=== PATIENT | female | born 1950 | race Caucasian/White ===

== ENCOUNTER 2020-06-19 10:56 | Emergency (ER) | payer MEDICARE, BC ==
[2020-06-19] MEDS ORDERED: Sodium Chloride 0.9% 10 ML Syringe FLUSH PRN (11:18)
[2020-06-19] MEDS ORDERED: Ondansetron 4 MG/2 ML SDV IVPUSH ONE (11:18)
[2020-06-19] MEDS ORDERED: Sodium Chloride 0.9% 1,000 ML IV STA (11:18)
--- NOTE | 2020-06-19 11:31 | EDM.PDOC ---
ED HPI GENERAL MEDICAL PROBLEM - General Chief Complaint: Gastrointestinal Problem Stated Complaint: [facility] Time Seen by Provider: 06/19/20 11:00 Source of Information: Reports: Patient, RN Notes Reviewed History Limitations: Reports: No Limitations - History of Present Illness INITIAL COMMENTS - FREE TEXT/NARRATIVE: Patient is a 69-year-old female presenting to the emergency department with complaints of dizziness. She states shortly after waking this morning she went to the bathroom and experienced sensation of the room spinning. She states she also feels like there is "fluid sloshing around in her left ear ". She has a history of vertigo with her last episode being 1 year ago. She states after going on a cruise in June, she did have to go to through physical therapy for a number of months as she continued to have motion sickness. She describes her "dizziness "as feeling rotational. When she closes her eyes she states it continues to feel like the room is spinning. She has not fallen or hit her head recently. Denies headache. She is had no abdominal pain or vomiting but does feel nauseous with this. She states that symptoms seem to worsen with position changes. - Related Data Allergies Allergy/AdvReac Type Severity Reaction Status Date / Time codeine Allergy Other Verified 10/17/17 07:20 Home Meds: Home Meds Meclizine [Antivert] 25 mg PO TID PRN #30 tab 06/19/20 [Rx] Ondansetron [Zofran ODT] 4 mg PO Q6H PRN #10 tab.dis 06/19/20 [Rx] Past Medical History - Infectious Disease History Infectious Disease History: Reports: Chicken Pox, Mumps, Rubella - Past Surgical History Female Surgical History: Reports: D&C, Hysterectomy, Tubal Ligation Social & Family History - Tobacco Use Tobacco Use Status *Q: Never Tobacco User Second Hand Smoke Exposure: No - Caffeine Use Caffeine Use: Reports: Coffee - Recreational Drug Use Recreational Drug Use: No ED ROS GENERAL - Review of Systems Review Of Systems: See Below Constitutional: Reports: No Symptoms. Denies: Fever, Chills, Weakness HEENT: Reports: Vertigo, Other (Left ear "fluid sloshing "). Denies: Ear D ischarge, Ear Pain Respiratory: Reports: No Symptoms Cardiovascular: Reports: No Symptoms. Denies: Chest Pain, Dyspnea on Exertion Endocrine: Reports: No Symptoms GI/Abdominal: Reports: Nausea. Denies: Abdominal Pain, Vomiting : Reports: No Symptoms Musculoskeletal: Reports: No Symptoms Skin: Reports: No Symptoms Neurological: Reports: Dizziness, Gait Disturbance. Denies: Confusion, Headache Psychiatric: Reports: No Symptoms Hematologic/Lymphatic: Reports: No Symptoms Immunologic: Reports: No Symptoms ED EXAM, DIZZINESS - Physical Exam Exam: See Below Exam Limited By: No Limitations General Appearance: Alert, WD/WN, No Apparent Distress Eye Exam: Bilateral Eye: Normal Inspection, PERRL Ears: Normal External Exam, Normal Canal, TM Fluid (left). No: TM Bulging, TM Erythema Vertigo: reproducible (when going from lying to upright position.). No: worsens with head to L, worsens with head to R Respiratory/Chest: No Respiratory Distress, Lungs Clear, Normal Breath Sounds, No Accessory Muscle Use, Chest Non-Tender Cardiovascular: Normal Peripheral Pulses, Regular Rate, Rhythm, No Edema, No Gallop, No JVD, No Murmur, No Rub Neurological: Alert, Normal Mood/Affect, Normal Dorsiflexion, CN II-XII Intact, Normal Plantar Flexion, Normal Gait, Normal Reflexes, No Motor/Sensory Deficits, Oriented x 3 Psychiatric: Normal Affect, Normal Mood Skin Exam: Warm, Dry, Intact, Normal Color, No Rash Course - Vital Signs Last Recorded V/S: Last Vital Signs Temp 97.5 F 06/19/20 11:01 Pulse 72 06/19/20 11:01 Resp 18 06/19/20 11:01 BP 145/74 H 06/19/20 11:01 Pulse Ox 100 06/19/20 11:01 - Orders/Labs/Meds Orders: Active Orders 24 hr Category Date Time Status Peripheral IV Care [RC] . DIRECTED Care 06/19/20 11:18 Active Sodium Chloride 0.9% [Normal Saline] 1,000 ml Med 06/19/20 11:18 Active IV NOW Sodium Chloride 0.9% [Saline Flush] Med 06/19/20 11:18 Active 10 ml FLUSH ASDIRECTED PRN Peripheral IV Insertion Adult [OM.PC] Stat Oth 06/19/20 11:18 Ordered Medication Orders Sodium Chloride (Normal Saline) 1,000 mls @ 150 mls/hr IV NOW STA Stop: 06/19/20 17:57 Last Admin: 06/19/20 11:29 Dose: 150 mls/hr Documented by: VLAD Sodium Chloride (Saline Flush) 10 ml FLUSH ASDIRECTED PRN PRN Reason: Keep Vein Open Last Admin: 06/19/20 11:29 Dose: 10 ml Documented by: VLAD Labs: Laboratory Tests 06/19/20 06/19/20 Range/Units 11:30 11:30 WBC 6.00 (3.98-10.04) K/mm3 RBC 4.41 (3.98-5.22) M/mm3 Hgb 13.5 (11.2-15.7) gm/dl Hct 39.9 (34.1-44.9) % MCV 90.5 (79.4-94.8) fl MCH 30.6 (25.6-32.2) pg MCHC 33.8 (32.2-35.5) g/dl RDW Std Deviation 43.5 (36.4-46.3) fL Plt Count 131 L (182-369) K/mm3 MPV 9.0 L (9.4-12.3) fl Neut % (Auto) 77.6 H (34.0-71.1) % Lymph % (Auto) 14.8 L (19.3-51.7) % Florence % (Auto) 6.0 (4.7-12.5) % Eos % (Auto) 1.2 (0.7-5.8) Baso % (Auto) 0.2 (0.1-1.2) % Neut # (Auto) 4.66 (1.56-6.13) K/mm3 Lymph # (Auto) 0.89 L (1.18-3.74) K/mm3 Florence # (Auto) 0.36 (0.24-0.36) K/mm3 Eos # (Auto) 0.07 (0.04-0.36) K/mm3 Baso # (Auto) 0.01 (0.01-0.08) K/mm3 Sodium 142 (136-145) mEq/L Potassium 3.7 (3.5-5.1) mEq/L Chloride 106 (98-107) mEq/L Carbon Dioxide 26 (21-32) mEq/L Anion Gap 13.7 (5-15) BUN 19 H (7-18) mg/dL Creatinine 0.9 (0.55-1.02) mg/dL Est Cr Clr Drug Dosing 47.97 mL/min Estimated GFR (MDRD) > 60 (>60) mL/min BUN/Creatinine Ratio 21.1 H (14-18) Glucose 129 H (80-115) mg/dL Calcium 9.0 (8.5-10.1) mg/dL Magnesium 1.7 L (1.8-2.4) mg/dl Total Bilirubin 0.4 (0.2-1.0) mg/dL AST 20 (15-37) U/L ALT 20 (14-59) U/L Alkaline Phosphatase 45 L (46-116) U/L C-Reactive Protein 0.4 (<1.0) mg/dL Total Protein 7.2 (6.4-8.2) g/dl Albumin 3.5 (3.4-5.0) g/dl Globulin 3.7 gm/dL Albumin/Globulin Ratio 1.0 (1-2) Meds: Medications Generic Name Dose Route Start Last Admin Trade Name Freq PRN Reason Stop Dose Admin Sodium Chloride 1,000 mls @ 150 mls/hr 06/19/20 11:18 06/19/20 11:29 Normal Saline IV 06/19/20 17:57 150 mls/hr NOW STA Administration Sodium Chloride 10 ml 06/19/20 11:18 06/19/20 11:29 Saline Flush FLUSH 10 ml ASDIRECTED PRN Administration Keep Vein Open Discontinued Medications Generic Name Dose Route Start Last Admin Trade Name Freq PRN Reason Stop Dose Admin Meclizine HCl 25 mg 06/19/20 11:18 06/19/20 11:29 Antivert PO 06/19/20 11:19 25 mg ONETIME ONE Administration Ondansetron HCl 4 mg 06/19/20 11:18 06/19/20 11:29 Zofran IVPUSH 06/19/20 11:19 4 mg ONETIME ONE Administration - Re-Assessments/Exams Free Text/Narrative Re-Assessment/Exam: Patient is a 69-year-old female presenting to the emergency department with complaints of symptoms of vertigo that began this morning. She denies any headache or recent falls. Symptoms do not worsen with lateral turning of the head to the right of the left, however were able to be reproduced by going from a lying to a sitting position. I have ordered CBC, CMP, CRP, magnesium, and CT scan of the head. I will give her meclizine 25 mg p.o. as well as Zofran 4 mg IV. 06/19/20 12:49 Hematology was grossly unremarkable. CT scan showed no acute abnormalities. Patient's dizziness has improved significantly with the Zofran and meclizine. We will discharge her home with a prescription for meclizine and Zofran. Discussed that if her symptoms have not resolved by Monday, she should follow-up in the clinic to discuss return to physical therapy for vertigo symptoms. Return precautions discussed. Discharge instructions as documented. Departure - Departure Time of Disposition: 12:50 Disposition: Home, Self-Care 01 Condition: Good Clinical Impression: Vertigo - Discharge Information *PRESCRIPTION DRUG MONITORING PROGRAM REVIEWED*: No *COPY OF PRESCRIPTION DRUG MONITORING REPORT IN PATIENT ROSA: No Prescriptions: Meclizine [Antivert] 25 mg PO TID PRN #30 tab PRN Reason: Dizziness Ondansetron [Zofran ODT] 4 mg PO Q6H PRN #10 tab.dis PRN Reason: Nausea/Vomiting Referrals: PCP,None [Primary Care Provider] - Forms: ED Department Discharge Additional Instructions: You were seen in the emergency department today for symptoms of vertigo. Work- up included blood work, and a CT scan of your head. Both of these tests were found to be normal. While in the ER, you received meclizine which is a motion sickness medication as well as Zofran for nausea. This did substantially improve your dizziness. A prescription for meclizine and Zofran has been sent to clinic pharmacy. Use these medications as prescribed for recurrence of dizziness and nausea. If symptoms have not resolved by Monday, recommend follow-up in the clinic to discuss return to physical therapy. Return to ER for any new or worsening symptoms of concern. Sepsis Event Note (ED) - Evaluation Sepsis Screening Result: No Definite Risk - Focused Exam Vital Signs: Vital Signs Temp Pulse Resp BP Pulse Ox 06/19/20 11:01 97.5 F 72 18 145/74 H 100 - My Orders Last 24 Hours: My Active Orders 06/19/20 11:18 Peripheral IV Care [RC] . DIRECTED Sodium Chloride 0.9% [Normal Saline] 1,000 ml IV NOW Sodium Chloride 0.9% [Saline Flush] 10 ml FLUSH ASDIRECTED PRN Peripheral IV Insertion Adult [OM.PC] Stat - Assessment/Plan Last 24 Hours: My Active Orders 06/19/20 11:18 Peripheral IV Care [RC] . DIRECTED Sodium Chloride 0.9% [Normal Saline] 1,000 ml IV NOW Sodium Chloride 0.9% [Saline Flush] 10 ml FLUSH ASDIRECTED PRN Peripheral IV Insertion Adult [OM.PC] Stat
--- NOTE | 2020-06-19 12:20 | CT ---
Head CT Technique: Multiple axial sections through the brain were obtained. Intravenous contrast was not utilized. Reconstructed coronal and sagittal images were obtained. Comparison: No prior intracranial imaging is available. Findings: Ventricles along with basal cisterns and sulci over the convexities appear within normal limits for the patient's age. No abnormal parenchymal densities are seen. No evidence of intracranial hemorrhage. No midline shift or mass-effect is seen. Visualized mastoid sinuses show nothing acute. Visualized paranasal sinuses show nothing acute. No acute calvarial finding is appreciated. Impression: 1. Nothing acute is identified on noncontrast head CT exam. Diagnostic code #1
== END 2020-06-19 13:10 | disposition home or self-care (01) ==
LOC: JD.ED 10:56
DX: R42 Dizziness and giddiness (principal); Z88.5 Allergy status to narcotic agent
CPT/HCPCS: 36415; 70450; 80053; 83735; 85025; 86140; 96374; 99285; A9270; J2405; J7030

== ENCOUNTER 2021-04-02 05:10 | Emergency (ER) | payer MEDICARE, BC ==
--- NOTE | 2021-04-02 05:39 | EDM.PDOC ---
ED HPI GENERAL MEDICAL PROBLEM - General Chief Complaint: Neurological Problem Stated Complaint: VERTIGO Time Seen by Provider: 04/02/21 05:39 - History of Present Illness INITIAL COMMENTS - FREE TEXT/NARRATIVE: Patient states she awoke from sleep about 0330 this morning She noted sensation of some fluid in the left ear When she rolled over to get up, she experienced vertigo, with sensation of the room spinning She had medication that was prescribed 06/19/2020 for vertigo, but was uncertain of its location She therefore decided to come to ED for evaluation Her administered some "swimmer's ear" drops in the left ear before they left home She reports significant improvement in dizziness at present Endorses feeling "lightheaded", with some nausea Denies headache, visual disturbance, vomiting States she has previously had vertigo in conjunction with fluid in the ears - Related Data Allergies Allergy/AdvReac Type Severity Reaction Status Date / Time codeine Allergy Other Verified 04/02/21 05:27 sulfamethoxazole Allergy Cannot Verified 04/02/21 05:27 [From Bactrim] Remember trimethoprim [From Bactrim] Allergy Cannot Verified 04/02/21 05:27 Remember Home Meds: Home Meds Meclizine [Antivert] 25 mg PO TID PRN #30 tab 06/19/20 [Rx] Ondansetron [Zofran ODT] 4 mg PO Q6H PRN #10 tab.dis 06/19/20 [Rx] Past Medical History - Infectious Disease History Infectious Disease History: Reports: Chicken Pox, Mumps, Rubella - Past Surgical History Female Surgical History: Reports: D&C, Hysterectomy, Tubal Ligation Social & Family History - Caffeine Use Caffeine Use: Reports: Coffee ED ROS GENERAL - Review of Systems Review Of Systems: See Below Free Text/Narrative/Comment: Constitutional - no fever Eyes - no eye pain; no visual disturbance ENT - no rhinorrhea; no congestion; no epistaxis; no ear pain Cardiovascular - no chest pain Respiratory - no shortness of breath; no cough Gastrointestinal - no abdominal pain; nausea; no vomiting; no diarrhea Musculoskeletal - no neck pain; no back pain; no extremity injury Neurological - no headache; no speech disturbance; no weakness; dizziness ED EXAM, GENERAL - Physical Exam Exam: See Below Free Text/Narrative:: Constitutional - awake; alert; no acute distress Head - no facial swelling or weakness Eyes - extra ocular motion intact; conjunctiva normal; pupils equal and reactive to light; no nystagmus ENT - no nasal deformity; no epistaxis; normal phonation Neck - no swelling; supple Respiratory - normal respiratory effort; no crackles or wheezing; no stridor Cardiovascular - regular rhythm; normal rate; S1; S2; grade 1/6 systolic murmur GI/Abdomen - normal bowel sounds; soft; no tenderness; no rebound; no guarding; no mass Musculoskeletal - grossly normal strength and motion; no swelling or deformity Skin - warm; dry Neurologic - normal speech; no weakness; no inducible vertigo with Amina-Hallpike maneuver to left or right Psychiatric - normal mood and affect; memory and attention normal Course - Vital Signs Text/Narrative:: Symptoms and examination were discussed Clinical presentation was consistent with acute peripheral vertigo There were no findings for acute CVA or central vertigo ED investigation was felt to be of limited utility Empiric treatment was offered with meclizine and ondansetron At reevaluation there was overall improvement in symptoms, and she felt comfortable for discharge Patient was felt to be stable for outpatient follow-up Return precautions were provided Last Recorded V/S: Last Vital Signs Temp 36.0 C L 04/02/21 07:30 Pulse 72 04/02/21 07:30 Resp 16 04/02/21 07:30 BP 130/57 L 04/02/21 07:30 Pulse Ox 99 04/02/21 07:30 - Orders/Labs/Meds Meds: Medications Discontinued Medications Generic Name Dose Route Start Last Admin Trade Name Nishantq PRN Reason Stop Dose Admin Meclizine HCl 25 mg 04/02/21 05:58 04/02/21 06:01 Meclizine 25 Mg Tab.Chew PO 04/02/21 05:59 25 mg ONETIME ONE Administration Ondansetron HCl 4 mg 04/02/21 06:02 04/02/21 06:08 Ondansetron 4 Mg Tab.Dis PO 04/02/21 06:03 4 mg ONETIME ONE Administration Departure - Departure Time of Disposition: 07:13 Disposition: Home, Self-Care 01 Clinical Impression: Vertigo - Discharge Information *PRESCRIPTION DRUG MONITORING PROGRAM REVIEWED*: Not Applicable *COPY OF PRESCRIPTION DRUG MONITORING REPORT IN PATIENT ROSA: Not Applicable Instructions: Vertigo Referrals: PCP,None [Ordering Only Provider] - Forms: ED Department Discharge Additional Instructions: Return if condition worsens May resume general activity and regular diet as tolerated Continue usual medications May take MECLIZINE 25 mg every 6 hours as needed for dizziness/vertigo (no prescription required) May try oral decongestant medication to facilitate drainage of possible middle ear fluid May also try OXYMETAZOLINE (Afrin) or PHENYLEPHRINE (Virgilio-Synephrine) nasal decongestant spray (no prescription required; do not use longer than 3-4 days) Follow-up with primary care provider is recommended in 3 to 5 days
[2021-04-02] MEDS ORDERED: Ondansetron 4 MG Tab.DIS PO ONE (06:02)
== END 2021-04-02 07:40 | disposition home or self-care (01) ==
LOC: JD.ED 05:10
DX: R42 Dizziness and giddiness (principal); Z88.1 Allergy status to other antibiotic agents; Z88.5 Allergy status to narcotic agent; Z88.2 Allergy status to sulfonamides
CPT/HCPCS: 99283; A9270